=== PATIENT | female | born 1960 | race Caucasian/White ===

== ENCOUNTER → 2023-12-27 16:29 | Outpatient (REF) | payer OTHER, SELFPAY | LOC: WDC 16:29 | DX: R91.1 Solitary pulmonary nodule (principal); Z87.891 Personal history of nicotine dependence; Z12.31 Encounter for screening mammogram for malignant neoplasm of breast; Z87.2 Personal history of diseases of the skin and subcutaneous tissue; Z80.3 Family history of malignant neoplasm of breast | CPT/HCPCS: 71250; 77063; 77067 ==

== ENCOUNTER → 2024-03-24 13:55 | Outpatient (REF) | payer OTHER, SELFPAY | LOC: WDC 13:55 | PROVIDERS: ATTENDING PHYSICIAN Specialist | DX: R92.2 Inconclusive mammogram (principal); Z80.3 Family history of malignant neoplasm of breast; Z87.2 Personal history of diseases of the skin and subcutaneous tissue | CPT/HCPCS: 76641 ==